=== PATIENT | female | born 1955 | race Caucasian/White ===

== ENCOUNTER 2018-08-01 13:43 | Inpatient (IN) | payer OTHER ==
[~2018-08-01] VITALS: Ht 160 cm; Wt 127.7 kg
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
--- NOTE | ~2018-08-01 | PR ---
[place], [place] PROGRESS NOTE NAME: CARMEN GAMBINO UNIT #: [id number] ROOM: 310 DOCTOR: ANEESH ABBOTT CNP BIRTHDATE: [birth year] DOS: 08/04/2018 CHIEF COMPLAINT: "I am not angry anymore." SUMMARY OF VISIT: The patient was interviewed as she sat in the dining room, participating in activities. The patient engaged readily in conversation with me. She reports that she is happy. She no longer feels angry. She denies feeling any anxiety. She reports that her appetite is good and that she is sleeping well. Staff reports that the patient has not exhibited any behaviors recently, that she appears to be tolerating medications without any side effects. MENTAL STATUS EXAMINATION: The patient is alert and oriented. She was pleasant and cooperative. No overt nayla or hypomania noted. No delusions or paranoia noted. No psychotic symptoms noted. No auditory or visual hallucinations noted. Her mood seems to be trending toward euthymia. Affect is congruent with mood. PLAN: I will continue the patient's medications as prescribed. The patient seems to be tolerating medications without side effects. We will continue to monitor the patient, continue to encourage the patient to engage in individual and mckenzie milieu activity. Continue fall and safety precautions. Plan to return the patient to the least restrictive environment when she is considered psychiatrically stable. Aneesh Abbott CNP CM:PNTRANS [phone] ANEESH ABBOTT CNP 08/05/18 0052 interface
--- NOTE | ~2018-08-01 | PR ---
[place], [place] PROGRESS NOTE NAME: CARMEN GAMBINO UNIT #: [id number] ROOM: 310 DOCTOR: JOHNNY LEONARDO MD BIRTHDATE: [birth year] DOS: 08/03/2018 INTERVAL NOTE CHIEF COMPLAINT: "Oh, Hi there, how are you, I am good." SUMMARY OF THE VISIT: The patient was interviewed as she was sitting with many other residents. She engaged readily in conversation. She brightly told me that family came to visit yesterday and states that she believes they are coming again to see her today. She reports that she is trying her best to keep her moods under control and has been relatively redirectable with minimal amount of support. Outwardly, she is tolerating the current medication regimen well without any sedation or somnolence noted. MENTAL STATUS: She is alert and oriented with time gaps. Mood does seem to be more euthymic. Affect is more appropriate. There is no nayla, hypomania or gross psychosis. Short-term memory has gaps, otherwise she is intact. PLAN: I will go ahead and check a valproic acid level in the a.m. to ensure that it is therapeutic. I would like to see a level between 60 and 80 and we will adjust her Depakote dose accordingly. We will engage her in individual and mckenzie milieu activity, returning to the least restrictive environment when psychiatrically stable. JOHNNY LEONARDO MD CM:PNTRANS [phone] JOHNNY LEONARDO MD 08/03/18 2001 interface
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
[2018-08-01] MEDS ORDERED: AMARYL2 MG PO ×2 (15:08→15:18)
[2018-08-01] MEDS ORDERED: ASPIRIN CHEWABL81 MG PO (15:12)
[2018-08-01] MEDS ORDERED: COLACE100 MG PO (15:13)
[2018-08-01] MEDS ORDERED: FEXOFENADINE HY60 MG PO (15:13)
[2018-08-01] MEDS ORDERED: 24 HOUR ALLER15.8 ML INH (15:15)
[2018-08-01] MEDS ORDERED: OXYGEN NAS (15:19)
[2018-08-01] MEDS ORDERED: OMEPRAZOLE20 M2 PO (15:20)
[2018-08-01] MEDS ORDERED: SINGULAIR10 M1 PO (15:21)
[2018-08-01] MEDS ORDERED: VISTARIL50 MG PO (15:21)
[2018-08-01] MEDS ORDERED: VITAMIN C500 M4 PO (15:22)
[2018-08-01] MEDS ORDERED: VITAMIN D35000 UNIT PO (15:22)
[2018-08-01] MEDS ORDERED: WELLBUTRIN XL300 MG PO (15:23)
[2018-08-01] MEDS ORDERED: PULMICORT RESP0.5 MG INH (15:26)
[2018-08-01] MEDS ORDERED: LEVEMIR100 UNIT/1 SQ (15:26)
[2018-08-01] MEDS ORDERED: VISTARIL25 MG PO (15:29)
[2018-08-01] MEDS ORDERED: NOVOLOG10 ML SQ (15:32)
[2018-08-01] MEDS ORDERED: NOVOLOG FL100 UNIT/2 SQ ×2 (15:34→15:36)
[2018-08-01] MEDS ORDERED: PROAIR HFA8.5 GM INH (15:37)
[2018-08-01] MEDS ORDERED: SALINE NASAL SP88 ML INH (15:38)
[2018-08-01] MEDS ORDERED: Ipratropium Brom3 ML INH (15:39)
[2018-08-01] MEDS ORDERED: TUSSIN COU15 MG/5 ML PO (15:41)
[2018-08-01] MEDS ORDERED: ZOFRAN4 MG PO (15:42)
--- NOTE | 2018-08-01 16:04 | NUR ---
CARMEN GAMBINO a 63 year old F admitted via wheel chair from the ADMITTING as a voluntary BY [facility] admission. Arrived on unit at 1604. ALLERGIES: AMOXICILLIN. Vital signs are: 98.5-78-18 144/67. 99% ROOM AIR The POA signed the following forms with stated understanding: Authorization For The Release of Medical Information, Clothing List, Consent to Voluntary Admission and Hospitalization, Consent and Release Forms/Receipt of Rights, Acknowledgement of Advance Directive Information, Behavioral Health Consent Form, and Informed Consent of Medications. Admitted under the services of Dr. JORDEN GOOD,[facility]. A search was conducted and hazardous articles were removed. Client was oriented to the unit. SELENE GARCIA
[2018-08-01 16:33] VITALS: BP 144/67
--- NOTE | 2018-08-01 16:53 | NUR ---
CALL PLACED TO [phone] FOR HOSPITALIST CELL NUMBER ONE, SPOKE TO , MADE AWARE OF CONSULT FOR MEDICAL MANAGEMENT. MADE AWARE PT IS DIABETIC, BSG 307 AT THIS TIME. STATES THEY WILL ENTER NEW ORDERS.
--- NOTE | 2018-08-01 17:18 | NUR ---
ON UNIT TO SEE PT AT THIS TIME.
--- NOTE | 2018-08-01 17:56 | NUR ---
ON UNIT TO SEE PT AT THIS TIME. LAB ON UNIT FOR BLOOD DRAW. FAMILY VISITING AND AWARE.
[2018-08-01 18:14] LABS: BASO # 0.1 10*3/uL (0.0-0.1); BASO % 0.8 % (0.0-1.0); EOS # 0.3 10*3/uL (0.0-0.4); EOS % 3.8 % (1.0-4.0); LYMPH # 1.9 10*3/uL (1.3-4.4); LYMPH % 22.5 % (27.0-41.0); MEAN CELL VOLUME 68.8 fl (81.0-99.0); MEAN CORPUSCULAR HGB 19.4 pg (27.0-31.0); MEAN CORPUSCULAR HGB CONC 28.1 g/dl (33.0-37.0); MEAN PLATELET VOLUME 10.3 fl (9.6-12.3); MONO # 0.7 10*3/uL (0.1-1.0); MONO % 8.4 % (3.0-9.0); NEUT # 5.4 10*3/uL (2.3-7.9); PLATELET COUNT AUTOMATED 313 10*3/uL (130-400); RED BLOOD COUNT 4.65 10*6/uL (4.10-5.10); RED CELL DISTRI WIDTH 20.5 % (0-14.5); WHITE BLOOD COUNT 8.5 10*3/uL (4.8-10.8)
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
[2018-08-01 18:52] LABS: ALBUMIN 3.3 gm/dl (3.1-4.5); ALKALINE PHOSPHATASE 119 U/L (45-117); BUN 16 mg/dl (7-24); CHLORIDE 102 mmol/L (98-107); CREATININE 0.97 mg/dL (0.55-1.02); POTASSIUM 4.3 mmol/L (3.5-5.1); SGOT/AST 17 IU/L (3-35); SGPT/ALT 22 U/L (12-78); SODIUM 138 mmol/L (136-145); TOTAL PROTEIN 8.7 gm/dL (6.4-8.2)
[2018-08-01 18:58] LABS: VITAMIN D, 25-HYDROXY 25.3 ng/mL (30-100)
[2018-08-01 19:23] LABS: BILIRUBIN NEGATIVE (NEGATIVE); BLOOD 2+ (NEGATIVE); CLARITY SL CLOUDY (CLEAR); COLOR YELLOW (YELLOW); GLUCOSE 1+ (NEGATIVE); KETONE TRACE (NEGATIVE); LEUKO ESTERASE 1+ (NEGATIVE); NITRITE NEGATIVE (NEGATIVE); UROBILINOGEN 0.2 E.U./dl (0.2-1.0)
[2018-08-01 19:31] LABS: BACTERIA 4+; RBC 21-30 rbc/hpf (0-2); WBC TNTC wbc/hpf (0-5)
[2018-08-01 20:04] VITALS: BP 120/70
--- NOTE | 2018-08-01 20:26 | NUR ---
MADE AWARE OF UA AND A1C. ALSO MADE AWARE HOME MEDICATIONS NEED TO BE ORDERED.
--- NOTE | 2018-08-01 21:59 | NUR ---
PT ALERT AND VERBAL. ABLE TO ANWSER ONLY SOME SIMPLE QUESTIONS APPROPRIATELY, MEDICATION COMPLIANT WITHOUT DIFFICULTY. RESPS EASY AND EVEN ON ROOM AIR.
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
--- NOTE | 2018-08-02 00:05 | NUR ---
RUDDY Cespedes RECEIVED FROM .
--- NOTE | 2018-08-02 00:55 | NUR ---
24 HR chart check completed.
--- NOTE | 2018-08-02 04:08 | NUR ---
REDNESS NOTED TO LOWER ABD AREA. NO OPEN AREAS, DRAINAGE, OR FOUL ODOR NOTED. DREA WC NURSE ON UNIT AND ASSESSED, STATES WILL INFORM RESIDENT AND PROVIDE WC RECOMMENDATIONS.
--- NOTE | 2018-08-02 04:28 | NUR ---
CARMEN GAMBINO [id number] Please refer to the physician's history and physical for past medical history, comorbid conditions, and allergies. Diagnosis: MAJOR DEPRESSION RECURRENT W/PSYCHOTIC FEATURES Chris Score: 15,AT RISK WOUND DESCRIPTIONS: Wound Number: 1 Location of the wound: left posterior upper thigh Type of wound: stage 2 Thickness: Partial Size: 0.9cm x 1.4cm x 0.1cm Tunneling: none Undermining: none Sinus Tract: none Presence of Exudate: Serosanguineous Amount: Light Color: Red Odor: None Periwound Skin Appearance: Normal Wound edges: approximated Pain (associated with wound): none at time of assessment How does patient state this happened? pt unsure how this happened Wound Number: 3 Location of the wound: medial aspect of right posterior upper thigh proximal Type of wound: stage 2 Thickness: Partial Size: 0.3cm x 0.4cm x 0.1cm Tunneling: none Undermining: none Sinus Tract: none Presence of Exudate: Serosanguineous Amount: Light Color: Red Odor: None Periwound Skin Appearance: Normal Wound edges: approximated Pain (associated with wound): none at time of assessment How does patient state this happened? pt unsure how this happened Wound Number: 3 Location of the wound: medial aspect of right posterior upper thigh distal Type of wound: stage 2 Thickness: Partial Size: 3.5cm x 7.0cm x 0.1cm Tunneling: none Undermining: none Sinus Tract: none Presence of Exudate: Serosanguineous Amount: Light Color: Red Odor: None Periwound Skin Appearance: Normal Wound edges: approximated Pain (associated with wound): none at time of assessment How does patient state this happened? pt unsure how this happened Wound Number: 4 Location of the wound: lateral aspect of right posterior upper thigh Type of wound: stage 2 Thickness: Partial Size: 0.4cm x 0.6cm x 0.1cm Tunneling: none Undermining: none Sinus Tract: none Presence of Exudate: Serosanguineous Amount: Light Color: Red Odor: None Periwound Skin Appearance: Normal Wound edges: approximated Pain (associated with wound): none at time of assessment How does patient state this happened? pt unsure how this happened Wound Number: 5 Location of the wound: left posterior leg behind knee Type of wound: fungal Thickness: Partial Size: 6.5cm x 18.5cm x 0.1cm Tunneling: none Undermining: none Sinus Tract: none Presence of Exudate: Serous Amount: Light Color: Red Odor: Foul Periwound Skin Appearance: Edema Wound edges: approximated Pain (associated with wound): none at time of assessment How does patient state this happened? pt unsure how this happened Wound Number: 6 Location of the wound: left heel Type of wound: unstageable Thickness: Full Size: 0.6cm x 0.4cm x <0.1cm Tunneling: none Undermining: none Sinus Tract: none Presence of Exudate: none Amount: None Color: Brown, yellow Odor: None Periwound Skin Appearance: Normal Wound edges: closed Pain (associated with wound): none at time of assessment How does patient state this happened? pt unsure how this happened Wound Number: 7 Location of the wound: right breast Type of wound: fungal Thickness: Partial Size: 1.0cm x 2.0cm x 0.1cm Tunneling: none Undermining: none Sinus Tract: none Presence of Exudate: Serous Amount: Light Color: Red Odor: Foul Periwound Skin Appearance: Normal Wound edges: approximated Pain (associated with wound): none at time of assessment How does patient state this happened? pt unsure how this happened Wound number: 8 Bilateral groins have red satelitte areas noted. Bilateral groins have serous drainage noted that is foul smelling. Surface the patient is resting on: Proform SKIN PREVENTION RECOMMENDATION: 1. Pressure redistribution support surface as appropriate 2. Elevate heels 3. Remove boots/TEDS every shift and reapply 4. Head of bed 30 degrees as tolerated 5. Assess nutrition and hydration 6. Manage moisture 7. Avoid the use of containment devices while in bed 8. Use absorptive products on surfaces limit layers of linens on bed 9. Turn and reposition every 1-2 hours in bed and every 1 hour in chair as tolerated 10. Weight shifts every 15 minutes while up in chair 11. Offloading with pillows or device to keep heels elevated off bed 12. Monitor skin at least every shift 13. Inspect under medical devices twice a day WOUND TREATMENT RECOMMENDATIONS: Wheelchair cushion when oob. Heel raiser pro boots while in bed to bilateral feet. Stage 2 guidelines: Cleanse left posterior upper thigh, medial aspect of right posterior upper thigh proximal, medial aspect of right posterior upper thigh distal and lateral aspect of right posterior upper with nss and apply sureprep around the wound therahoney to wound bed and cover with optifoam gentle daily and prn for soiling. Cleanse right breast, bilateral groins and left posterior leg behind knee with soap and water and apply nystatin poweder every 8 hours. Full thickness guidelines: cleanse left heel with nss and apply sureprep around the wound therahoney to wound bed and cover with optifoam gentle. Venous and arterial stuides due to wound to left heel. Consult podiatry for possible debridement of left heel.
--- NOTE | 2018-08-02 05:45 | NUR ---
PT HAS BEEN AWAKE ALL EVENING WITHOUT SLEEP. RESTED IN BED WITH AWAKENINGS X3 TO USE THE RESTROOM.
[2018-08-02 07:43] VITALS: BP 121/78
[2018-08-02 08:11] LABS: CHOLESTEROL 157 mg/dL (<200); HDL CHOLESTEROL 54 mg/dl (40-60); LDL CHOLESTEROL 84 mg/dL (9-159); TRIGLYCERIDES 94 mg/dl (<150); VLDL CHOLESTEROL 19 mg/dL (6-40)
--- NOTE | 2018-08-02 08:15 | NUR ---
Treatment Plan meeting with Dr. [place] RN, AT, SW and Mother Baby Rn. Plan for discharge Next week. Pt. is from [place] will reach out to facility today to discuss discharge Planning.
--- NOTE | 2018-08-02 08:49 | NUR ---
Nursing screen received. Occupational Therapy referral received. Thank you. Samara Terry OTR/L
--- NOTE | 2018-08-02 10:14 | NUR ---
Spoke with Alejandrina in Admissions at [place]. Patient is [facility] and will return at discharge. Does not require precert prior to return.
--- NOTE | 2018-08-02 10:32 | NUR ---
Dr. Li notified of wound care recommendations.
--- NOTE | 2018-08-02 11:21 | NUR ---
S3B MULTI SENSOR OPERATOR UPDATED THIS NURSE THAT AFTER SPEAKING WITH FACILITY THEY ADVISED THAT PT IS A PUREED DIET WITH NECTAR THICK LIQUIDS. MESSAGE SENT TO DIETARY AND ALSO PHONE COLIN PLACED TO UPDATE ORDERS.
--- NOTE | 2018-08-02 11:30 | NUR ---
ON UNIT TO ASSESS PT, UPDATE PROVIDED.
--- NOTE | 2018-08-02 12:16 | NUR ---
SPEECH PATHOLOGY Clinical swallowing evaluation completed as per orders. Patient has a hx of dysphagia and is ordered a pureed diet and nectar thick liquids as per the senior care that she was admitted from. Medical history is significant for major depression with psychotic features, COPD, GERD, HTN, DM and uterine cancer. Patient was seen this pm during lunch time meal. Patient was sitting upright in a chair and was feeding herself, after being given only 1-2 items at a time to ensure slow consumption. Oral peripheral exam was completed and was WNL. Patient was observed with a variety of pureed items and nectar thick liquids. She displayed safe tolerance of all items consumed and 100% intake. Occasional cues to slow down and take small bites were required. Recommend patient remain on pureed diet and nectar thick liquids at this time as her behaviors can increase aspiration risk. Patient has a history of impulsivity at mealtime as reports indicate that she needs reminders to eat slowly and take small bites. Short term follow up therapy is recommended to ensure safe tolerance of diet through adherence to safe swallow precautions. Results and emil. were shared with patient and her nurse and they verbalized understanding. [facility] for further information. Thank you for this referral. NATALIYA PETERSNO [facility] NURSE
--- NOTE | 2018-08-02 14:41 | NUR ---
P: PT ALERT TO PERSON, AND TIME, KNOWS SHE IS IN THE HOSPITAL BUT UNSURE OF WHERE. PT CALM, MOOD IS DEPRESSED. PT TEARFUL AT TIMES STATING "I MISS MY MOM, I WANT TO GO BACK". I: PROVIDED EMOTIONAL SUPPORT AND 1:1 FOR PT TO VOICE FEELINGS, ENCOURAGE GROUP PARTICIPATION AND SOCIALIZATION, REORIENT PT PLACE AND TIME. R: PT PARTICIPATED IN GROUP, SOCIALIZED [facility]. LESS TEARFUL THIS AFTERNOON P: MONITOR PT BEHAVIORS ON Q15 MIN SAFETY CHECKS, ENCOURAGE MED COMPLIANCE, PROVIDE EMOTIONAL SUPPORT AND 1:1 FOR PT TO VOICE FEELINGS, REORIENT NEEDED PT MED COMPLIANT WITHOUT DIFFICULTY. PT UP TO WHEELCHAIR, REQUIRES 1 ASSIST FOR TRANSFERS AND AMBUALTION. PT CONTINENT OF BOWEL AND BLADDER.
--- NOTE | 2018-08-02 15:34 | NUR ---
Clinical Updates faxed to [facility] Attn: Alejandrina.
--- NOTE | 2018-08-02 15:35 | NUR ---
Family meeting held with pt's sisters Tri Dowling and Evelia. Pt's sisters shared about pt's history and current living situation. Pt resides in in the same room as her mother who has advancing dementia. Discussed the impact of dementia on a family and the added difficulty for pt as she has mild DD. Discussed this further, This designer writer suggested that pt have more time away from her mother in activities to allow for other social interaction and as a preparation for the decline of pt's mother. Discussed pt's dependence on her mother. Pt's sisters are very supportive and are willing to explore ways at the that will allow pt time away from her mother as a means to decrease pt's behaviors and to prepare her for a future without her mother. All questions from pt's family were addressed. Discharge plan is to return to [facility].
--- NOTE | 2018-08-02 19:47 | NUR ---
MADE AWARE OF CRITICAL BSG 426 AND ROUTINE ORDERS. STATES GIVE ALL SCHEDULED MEDICATIONS AND SLIDING SCALE 22UNITS. NO OTHER ORDERS RECEIVED.
[2018-08-02 20:00] VITALS: BP 124/53
--- NOTE | 2018-08-02 22:00 | NUR ---
PT REFUSED SNACK BUT DRANK BOOST SUPPLEMENT WITH MUCH ENCOURAGEMENT.
--- NOTE | 2018-08-02 23:38 | NUR ---
MOOD IS STABLE AND EUTHYMIC WITH APPROPRIATE BUT SOMETIMES FLAT AFFECT. ABLE TO ANWSER SOME SIMPLE QUESTIONS APPROPRIATELY. SLOW TO PROCESS AND RESPOND. PT GIVEN ADEQUATE AMOUNT OF TIME TO DO SO DURING INTERACTIONS. MEDICATION COMPLIANT WITHOUT DIFFICULTY. WOUND CARE TREATMENTS COMPLETED THIS SHIFT PER ORDERS. PT TOLERATED ALL TX'S WELL AND DENIES ANY PAIN TO ALL AREAS. FOUL SMELLING ODOR NOTED TO GROIN. PT TOOK A SHOWER THIS SHIFT. GOOD HYGIENE, DRESS, AND GROOMING THIS SHIFT WITH ASSIST FROM STAFF. PT PARTICIPATES MODERATELY IN ADLS. ATE 100% OF SNACK. POSITIVE PEER INTERCTIONS NOTED. MEDICATION COMPLIANT WITHOUT DIFFICULTY. 2L O2 VIA NC PER ORDERS IN PLACE. PT RESTING IN BED SLEEPING AT THIS TIME. RESPS EASY AND EVEN ON 02. Q15 MIN CHECKS PER OBSERVATION ORDERS. FALL PRECAUTIONS MAINTAINED. BED ALARM ON. BED LOW AND LOCKED.
--- NOTE | 2018-08-03 03:28 | NUR ---
24 HR chart check completed.
--- NOTE | 2018-08-03 05:09 | NUR ---
Upon discharge recommend patient to follow up for wound care in outpatient setting continue current wound care orders at discharging facility.
--- NOTE | 2018-08-03 05:58 | NUR ---
PT SLEPT 4.5 TO 4.75 HRS INTERMITTENTLY T/O THE EVENING. UP IN DAY ROOM WATCHING TV AT THIS TIME.
[2018-08-03 08:08] VITALS: BP 146/55
--- NOTE | 2018-08-03 08:25 | NUR ---
SPOKE WITH DR. MILLER AT [phone] RE: CONSULT FOR DR. HOLCOMB FOR POSSIBLE LEFT HEEL WOUND DEBRIDEMENT.
--- NOTE | 2018-08-03 10:18 | NUR ---
ON UNIT TO ASSESS PT.
--- NOTE | 2018-08-03 10:33 | NUR ---
Sat with pt in the activity room this AM. Pt is coloring and interacts minimally - only when spoken to and then with short answers. Observed pt with two other female pts. Pt also interacty minimally with her peers. When asked how pt is feeling, pt stated that she was "good."
--- NOTE | 2018-08-03 10:46 | NUR ---
SPEECH THERAPY Patient was seen this morning for swallowing treatment. Patient educated on small bites, small sips, and slow rate of intake prior to presentation of pureed food items and nectar-like liquids. Patient consumed small bites of pureed food consistencies. She required minimum verbal cues throughout to maintain slow rate of intake throughout treatment. During sips of nectar-like liquid via straw, reflexive coughing was observed on one trial. Patient cued to decrese sip size, and take small, single sips and to avoid consecutive sips. Patient cued to swallow bolus in mouth prior to taking additional bites or sips. Recommended to continue treatment plan for carryover of safe swallowing strategies with increased independence throughout a meal. Shellie Maria MA CF-JUVENILE CORRECTIONAL OFFICER
--- NOTE | 2018-08-03 11:00 | NUR ---
Treatment Plan meeting with Dr. Redding, RN, SW and Demand Manager. Plan for discharge next week. Pt. is LTC at [facility] and will return at discharge.
--- NOTE | 2018-08-03 13:37 | NUR ---
[facility]
--- NOTE | 2018-08-03 15:00 | NUR ---
PHYSICAL THERAPY Patient evaluated on 3, full evaluation to follow. Continue with PT as per plan of care with fall, unit three, alarm and acute debility precautions. Return to prior facility with PT prn to return to PLOF. PAtient is moderate complexity via chart review, tests and evaluation: [id number]. Thank you for this referral. Tiffany Jade,PT
--- NOTE | 2018-08-03 15:36 | NUR ---
NO ADVERSE MOODS OR BEHAVIORS NOTED THIS SHIFT. PT ALERT TO PERSON, PLACE-KNOWS SHE IS IN THE HOSPITAL AND TIME. PT MED COMPLIANT WITHOUT DIFFICULTY, UNABLE TO PROVIDE MED EDUCATION D/T COGNITION. PT CALM, MOOD IS DEPRESSED. PT DOES NOT INITIATE CONVERSATION WITH STAFF OF PEERS, WILL SPEAK WHEN SPOKEN TO IN SHORT ANSWERS. NO HALLUCINATIONS OR DELUSIONS NOTED. PT DENIES ANY SUICIDAL THOUGHTS. PT UP TO WHEELCHAIR, REQUIRES 1 STAFF ASSIST FOR TRANSFERS AND HYGIENE NEEDS. PT CONTINENT OF BOWEL AND BLADDER, EPISODES OF INCONTINENCE NOTED, CARE PROVIDED NEEDED. PLAN IS TO MONITOR PT BEHAVIORS ON Q15 MIN SAEFTY CHECKS, ENCOURAGE MED COMPLIANCE, PROVIDE EMOTIONAL SUPPORT AND 1:1 FOR PT TO VOICE FEELINGS, ENCOURAGE GROUP PARTICIPATION AND SOCIALIZATION.
--- NOTE | 2018-08-03 16:17 | NUR ---
AND DR. GARCIA ON UNIT TO ASSESS PT, UPDATE PROVIDED.
--- NOTE | 2018-08-03 16:54 | NUR ---
PHYSICAL THERAPY Nursing screen received. PT orders also received. Thank you. Tiffany Jade,PT
[2018-08-03 20:00] VITALS: BP 151/71
--- NOTE | 2018-08-04 00:36 | NUR ---
Patient alert and oriented x3 but slow to process and respond. Patient has flat affect at times. No SI/HI noted at this time. No hallucinations/delusions noted at this time. Patient is compliant with medications without any difficulty. Provided 1:1 to patient for emotional support. Redirected when appropriate. Plan to continue to encourage medication compliance and to provide 1:1 for emotional support. Redirect when needed and appropriate. Q 15 minute safety checks continued and maintained. See [facility] flowsheet for further documentation.
--- NOTE | 2018-08-04 00:54 | NUR ---
24 HR chart check completed.
--- NOTE | 2018-08-04 04:55 | NUR ---
Patient slept approx. 3 1/2 hours throughout shift. Q 15 minute safety checks continued and maintained.
[2018-08-04 07:46] VITALS: BP 140/70
--- NOTE | 2018-08-04 11:49 | NUR ---
AM GROUP/EXERCISES/GAMES PT ATTENDED AND PARTICIPATED IN ALL GROUP ACTIVITY'S. PT DID NOT BECOME ANXIOUS OR AGITATED AT THIS TIME. PT WILL CONTINUE TO ATTEND AND PARTICIPATE IN FUTURE GROUP SESSIONS.
--- NOTE | 2018-08-04 16:41 | NUR ---
PM GROUP/NEREIDA BUSH/LEISURE SKILLS PT ATTENDED AND PARTICIPATED DURING GROUP. PT WORKING ON WORDSEARCH TO ONLY FIND 2 WORDS IN 2 HOURS. NURSE INFORMED THIS STAFF THAT PT CAN'T READ, BUT PT INSISTED DOING WORDSEARCH WITH NO HELP. PT PRAISED FOR DETERMINATION. PT WILL CONTINUE TO ATTEND AND PARTICIPATE IN FUTURE GROUP SESSIONS.
[2018-08-04 20:00] VITALS: BP 134/67
--- NOTE | 2018-08-04 21:33 | NUR ---
Patient alert and oriented x3 but slow to process and respond. Patient has flat affect at times. No SI/HI noted at this time. No hallucinations/delusions noted at this time. Patient is compliant with medications without any difficulty. Provided 1:1 to patient for emotional support. Redirected when appropriate. Plan to continue to encourage medication compliance and to provide 1:1 for emotional support. Redirect when needed and appropriate. Q 15 minute safety checks continued and maintained. See [facility] flowsheet for further documentation.
--- NOTE | 2018-08-05 00:09 | NUR ---
24 HR chart check completed.
--- NOTE | 2018-08-05 05:31 | NUR ---
Patient slept approx. 1 1/2 hours throughout shift. Q 15 minute safety checks continued and maintained.
[2018-08-05 07:30] VITALS: BP 132/77
--- NOTE | 2018-08-05 09:52 | NUR ---
DR. FLORES ON FLOOR TO ASSESS PATIENT.
--- NOTE | 2018-08-05 11:09 | NUR ---
P: Patient tearful after breakfast. Patient stated "I am sad. I do not know why I am sad today. I just want to get out of here". Patient holding her baby doll. Patient is alert to person only with confusion noted. Depressed mood. Denies suicidal ideation or wanting to hurt herself. I: 1:1 interation with emtoinal support provided. Allowed patient to express feelings and why she is feeling sad. Assessed for suicidal ideation or plan. Encouraged patient to attend in group activites for socialization and emotional support. Provide medications on time and with education on each med. Encourage interaction with staff and peers. Offer coping and relaxation techniques when patient starts to feel sad. Offer a low stimuli environment. Reorient patient when confusion is noted. R: Patient states that she does not know why she is sad, she just feels sad, and she wants to go home. Denies SI or plan. Participating in group activities and interacting with staff/peers. Patient is medication compliant with no difficulties. Patient uses her baby doll as a coping technique. Refused to go into a low stimuli environment, patient stated that she wanted to stay in the room with everyone. As the day goes on and patient is interacting more her mood has gone up. Patient is laughing more and enjoying group. Reorientation when confused is ineffective, remains confused. P: Continue to monitor patient for depression and for any SI or plan. 1:1 interaction with emotional support when necessary. Allow to express feelings and use her baby doll for coping. Encourage patient to continue to participate in group activities. Continue to educate on other coping and relaxation techniques. Provide medications on time that are prescribed by the physician with education. Reorient patient when confusion is noted. Q15 minute checks maintained for safety. Standby assist with ADL's and care due to unsteady gait, using wheelchair.
--- NOTE | 2018-08-05 12:30 | NUR ---
Shift chart check completed.
[2018-08-05 20:00] VITALS: BP 141/86
--- NOTE | 2018-08-06 00:35 | NUR ---
24 HR chart check completed.
--- NOTE | 2018-08-06 00:48 | NUR ---
P-DEPRESSION, ANXIETY I-PROVIDE 1:1 FOR VENTILATION OF FEELINGS & EMOTIONAL SUPPORT. GIVE SIMPLE DIRECTIVES DUE TO COGNITION. ASSESS ORIENTATION. ADMINISTER MEDICATIONS & MONITOR SLEEP. R-MOOD IS MILDLY DEPRESSED & STATES THAT SHE IS ANXIOUS. ALERT TO PERSON & STATES THAT SHE IS IN THE HOSPITAL & THE MONTH IS AUGUST. ABLE TO FOLLOW SIMPLE DIRECTIONS & RESPONDS WITH SHORT ANSWERS. NO DELUSIONS STATED, DENIES SENSORY DISTURBANCE & NONE IS EVIDENT. NO SUICIDAL IDEATIONS VOICED. TOOK HS MEDICATIONS CRUSHED & MIXED IN APPLESAUCE. HS BEDSIDE GLUCOSE WAS 470. RECEIVED 22 UNITS COVERAGE. P-CONTINUE TO MONITOR & PROVIDE PHYSICAL ASSISTANCE & EMOTIONAL SUPPORT NEEDED.
--- NOTE | 2018-08-06 05:40 | NUR ---
PT HAS SLEPT PAST 2200 & HAS BEEN NOTED TO MOVE AROUND IN BED ALOT. SLEPT APPROX 5 1/2 HOURS OF INTERUPTED SLEEP. UTILIZES O2 INTERMITTENTLY THROUGHOUT THE NIGHT.
--- NOTE | 2018-08-06 06:52 | NUR ---
AM BEDSIDE GLUCOSE 71
--- NOTE | 2018-08-06 07:20 | NUR ---
PHYSICAL THERAPY Patient seen this am for therapy visit and was sitting at activity room table in her w/c upon therapist arrival. Patient presents with mild speech dificulty and inceased B LE edema. Patient educated, then performed seated B LE therex, all planes, x 15 reps each with R LE weaker than L during LAQ. Patient also completed several sit to stand transfers at [facility], tolerating < 1 minute each trial due to increased fatigue and decreased LE weakness. Patient returned to / at table in activity room and remained under [facility] staff Supervision awaiting breakfast. Will continue per POC as tolerated, total treatment time 16 minutes. Bridger Sheets, FLOTATION OPERATOR
[2018-08-06 08:06] VITALS: BP 153/65
--- NOTE | 2018-08-06 08:15 | NUR ---
Treatment Plan meeting with Dr. Redding, RN, AT, SW and Enforcement Safety Officer. Plan for discharge Monday. Pt. will return to [facility].
--- NOTE | 2018-08-06 08:45 | NUR ---
DR. MORTON ON FLOOR FROM PODIATRY TO ASSESS PATIENT.
--- NOTE | 2018-08-06 09:11 | NUR ---
CALLED PHARMACY FOR PATIENTS AMARYL. WAITING FOR IT TO BE SENT OVER.
--- NOTE | 2018-08-06 10:11 | NUR ---
DR. FLORES ON FLOOR TO ASSESS PATIENT, UPDATE PROVIDED.
--- NOTE | 2018-08-06 11:24 | NUR ---
P: Tearful at times and patient stating that she is sad. Patient tearful and stating "I just want to get out of here. When can I just go home. I do not want to wait until tomorrow. I miss my mom. I am sad because I just can not stay here anymore". I: 1:1 interaction with emotional support provided. Allowed patient to express why she is feeling sad. Coping skills, relaxation techniques, and diversional activities provided and encouraged to use. Encourage to participate in group therapies for socialization and emotional support. Provide medications with education. Offered to have patient call her mom. R: Patient stating that she just wants to go home. Patient uses the baby doll that she carries around as a coping mechanism. Patient is participating in group therapies and interacting with peers and staff. Patient seems to be more happy as the day goes on and she is doing activities. Patient enjoys talking with staff and peers. Medication compliant with no difficulties. Patient denies wanting to call her mom because it was to early at the time. P: Continue to monitor patient for depression. Encourage patient to use her baby doll as a coping mechanism. Continue to encourage patient to keep participating in group and interacting. Keep patient doing activities because she enjoys them. Provide medcications prescribed by the physician on time with education. Q15 minute checks maintained for safety.
--- NOTE | 2018-08-06 11:59 | NUR ---
AM GROUP/REMINISCING AND SOCIALIZING PT ATTENDED AND PARTICIPATED IN GROUP DISCUSSION UNTIL REMOVED FOR SHOWER. PT EXHIBITED NO ANXIETY DURING GROUP.
--- NOTE | 2018-08-06 12:20 | NUR ---
Spoke with Alejandrina Injection Mold Technician at [place]. Advised of discharge plans for [facility]. Clinical Updates faxed to [place] Attn: Alejandrina.
--- NOTE | 2018-08-06 12:30 | NUR ---
Spoke with patient Sister. Advised of plans to discharge tommorow.
--- NOTE | 2018-08-06 13:28 | NUR ---
Shift chart check completed.
--- NOTE | 2018-08-06 13:47 | NUR ---
SPEECH PATHOLOGY Patient was seen for treatment this pm during lunchtime meal. Safe swallow precautions were being implemented. Patient was sitting upright at table and given one item at a time to decrease impulsivity and rapid eating pattern. Adequate bite size and rate of feeding was noted. Patient was observed from outside the activity room and displayed no difficulty. When clinician entered the room and spoke to patient, asking about her swallowing, she began coughing. Encouragement was provided that she was ok and to continue to take small amounts as she had been. Patient was holding her throat and saying aloud "I'm coughing." Clinician spoke with patient's nurse who reported that this behavior has been noted and appears to be due to anxiety as it seems to occur around this time of day and when many other people are around. Clinician is in agreement, as prior to speaking with patient, she was not showing any difficulty swallowing her meal. Recommend patient remain on present diet for safety, with continued use of safety precautions. Will continue plan short term to ensure safety and adherence to safe swallow precautions. NATALIYA PETERSON MS CCC-FIELD SALES SPECIALIST
--- NOTE | 2018-08-06 13:58 | NUR ---
Occupational Therapy evaluation completed on 3 with full eval to follow/ Precautions include 3n unit prec, fall risk, w/c dep w/ ww use for bathroom only,moderate complexity level 94177 via chart review, testing and evalaution. Recommend no further OT at this time as patient appears at baseline. and return to LTC and no further OT indicated at this time, Encourage patient to perform w/c mobility on the 3N unit. Thank you for this referral Samara Terry OTR/l
--- NOTE | 2018-08-06 15:21 | NUR ---
Pt was pleasant this AM when speaking to this senior grant writer. Pt stated that she thinks she is going home today. Pt stated, "I'm a good girl."
--- NOTE | 2018-08-06 15:37 | NUR ---
PM GROUP/LEISURE INTERESTS PT ATTENDED GROUP AND PARTICIPATED BY WORKING ON A [employer]. PT WAS QUIET AND ON TASK. PT EXHIBITED NO ANXIETY DURING GROUP.
[2018-08-06 20:00] VITALS: BP 118/61; BP 153/65
--- NOTE | 2018-08-06 20:58 | NUR ---
EVENING/CRAFTS/MUSIC PT ATTENDED AND PARTICIPATED DURING GROUP. PT KEPT TO SELF AT THIS TIME WORKING ON CRAFT. PT DID NOT EXPRESS ANY ANXIETY AT THIS TIME. PT WILL CONTINUE TO BE ENCOURAGED TO ATTEND AND PARTICPATE IN FUTURE GROUP SESSIONS.
--- NOTE | 2018-08-06 23:08 | NUR ---
24 HR chart check completed.
--- NOTE | 2018-08-06 23:33 | NUR ---
P-DEPRESSION, ANXIETY I-PROVIDE 1:1 FOR VENTILATION OF FEELINGS & EMOTIONAL SUPPORT. GIVE SIMPLE DIRECTIVES DUE TO COGNITION. ASSESS ORIENTATION. ADMINISTER MEDICATIONS & MONITOR SLEEP. R-MOOD IS MILDLY DEPRESSED & STATES THAT SHE IS ANXIOUS. ALERT TO PERSON & STATES THAT SHE IS IN THE HOSPITAL & THE MONTH IS AUGUST. ABLE TO FOLLOW SIMPLE DIRECTIONS & RESPONDS WITH SHORT ANSWERS. NO DELUSIONS STATED, DENIES SENSORY DISTURBANCE & NONE IS EVIDENT. NO SUICIDAL IDEATIONS VOICED. TOOK HS MEDICATIONS CRUSHED & MIXED IN APPLESAUCE. HS BEDSIDE GLUCOSE WAS 222. RECEIVED 5 UNITS COVERAGE. P-CONTINUE TO MONITOR & PROVIDE PHYSICAL ASSISTANCE & EMOTIONAL SUPPORT NEEDED.
--- NOTE | 2018-08-07 05:21 | NUR ---
PT HAS SLEPT PAST 0 WITH 3 BRIEF AWAKENINGS TO GO TO THE BATHROOM WITH STAFF ASSISTANCE
--- NOTE | 2018-08-07 06:15 | NUR ---
PT BEDSIDE GLUCOSE 34. PT NOTED TO BE SWEATING. STAT REFLUX ORDERED. PT GIVEN 3 ORANGE JUICES & 6 PACKS OF SUGAR & A SANDWICH WITH LUNCHMEAT.
--- NOTE | 2018-08-07 06:53 | NUR ---
BEDSIDE GLUCOSE RETAKEN AT THIS TIME WAS 86
--- NOTE | 2018-08-07 07:01 | NUR ---
STAT GLUCOSE NOT RECEIVED YET
--- NOTE | 2018-08-07 07:03 | NUR ---
CRITICAL RESULT OF STAT GLUCOSE RECEIVED FROM BRONWYN FROM LAB WAS 38. INFORMED HIM THAT REPEAT BEDSIDE GLUCOSE WAS COMPLETED WITH A RESULT OF 86
--- NOTE | 2018-08-07 07:07 | NUR ---
DR GARCIA NOTIFIED OF BEDSIDE GLUCOSE OF 34 & CRITICAL LEVEL OF 38. INFORMED OF FOOD GIVEN & REPEAT BEDSIDE GLUCOSE OF 86. HE STATED HE WILL LOOK AT HER INSULINS & ADJUST ACCORDINGLY.
[2018-08-07 07:43] VITALS: BP 128/62
--- NOTE | 2018-08-07 08:00 | NUR ---
Treatment Plan meeting with Dr. Redding RN, AT, SW and Rn Vascular. Plan for discharge today. Pt. to return to [facility]. Call made to facility and notified [employer] Mat Assembler Tonie. Transportation arranged with Facility to transport via wheelchair Van.
--- NOTE | 2018-08-07 08:25 | NUR ---
PATIENTS BEDSIDE BLOOD GLUCOSE AT THIS TIME WAS 159. RECHECKED AT THIS TIME DUE TO PATIENT BEING LOW THIS MORNING.
[2018-08-07] MEDS ORDERED: BUDEPRION XL150 MG PO (09:08)
[2018-08-07] MEDS ORDERED: DIVALPROEX SOD125 M1 PO (09:08)
[2018-08-07] MEDS ORDERED: NYSTOP60 GM T (10:23)
[2018-08-07] MEDS ORDERED: LANTUS SOL100 UNIT/1 SC (10:23)
--- NOTE | 2018-08-07 10:28 | NUR ---
DR. FLORES ON FLOOR TO ASSESS PATIENT. DR. GARCIA NOTIFIED OF PATIENTS BLOOD SUGAR WENT UP THIS MORNING TO 159 AFTER BEING LOW WHEN WAKING UP. INFORMED OF PATIENT BEING DISCHARGED TODAY.
--- NOTE | 2018-08-07 11:16 | NUR ---
PATIENT IS MORE HAPPY. NOT TEARFUL OR DEPRESSED. PATIENT STATING "I AM SO HAPPY TO GO HOME. I CANT WAIT TO GO SEE MY MOM. I KNOW, NO HIT, NO HIT MOM. I LOVE MOM". PATIENT PLEASANT, INTERACTIVE, PARTICIPATING. MEDICATION COMPLIANT WITH NO DIFFICULITIES. PATIENT IS ALERT TO PERSON AND PLACE, CONFUSION NOTED. NO ADVERSE MOODS NOTED THIS SHIFT. Q15 MINUTE CHECKS MAINTAINED FOR SAFETY.
--- NOTE | 2018-08-07 11:40 | NUR ---
AM GROUP/EXERCISE PT ATTENDED AND PARTICIPATED IN EXERCISES TO THE BEST OF HER ABILITY. PT WAS FOCUSED AND ENTHUSIASTIC. PT WILL BE DISCHARGED FROM THE UNIT THIS AFTERNOON.
--- NOTE | 2018-08-07 12:18 | NUR ---
[facility]
--- NOTE | 2018-08-07 12:35 | NUR ---
Shift chart check completed.
--- NOTE | 2018-08-07 13:05 | NUR ---
DISCHARGE PHOTOS OF WOUNDS TAKEN AT THIS TIME. PHOTOS TAKEN OF 1) L POSTERIOR UPPER THIGH, 2) R MEDIAL POSTERIOR UPPER THIGH, 3) R DISTAL POSTERIOR UPPER THIGH, 4) R LATERAL POSTERIOR UPPER THIGH, 5) L POSTERIOR KNEE, 6) L HEEL, 7) R BREAST, 8) BILATTERAL GROIN SATELITTE AREAS.
--- NOTE | 2018-08-07 14:08 | NUR ---
Called [facility] and spoke with Diane to give Nurse to Nurse report at this time.
--- NOTE | 2018-08-07 14:10 | NUR ---
Met briefly with pt this AM. Pt is excited to be discharging today. Pt stated, "I told myself one more day, just one more day till I could go home." Pt did not display any inappropriate behaviors.
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
--- NOTE | 2018-08-07 14:53 | NUR ---
Patient discharged off floor at this time via wheelchair. Accompanied by Staff member from [place], a Nurse, and Security. Paperwork and belongings given to Staff member. Patient alert and excited to go home.
--- NOTE | 2018-08-08 07:29 | NUR ---
PHYSICAL THERAPY CO-SIGN I approve of the Phyical Therapy notes written above. RICKY STEWART PT
== END 2018-08-07 14:53 | disposition other institution (70) | DRG 883 ==
LOC: 3N 13:43 → EDBD 16:08 → 3N 08-07 14:53
PROVIDERS: ADMIT Psychiatry & Neurology Psychiatry
DX: F63.81 Intermittent explosive disorder (principal); L97.429 Non-pressure chronic ulcer of left heel and midfoot with unspecified severity; Z68.42 Body mass index [BMI] 45.0-49.9, adult; F33.3 Major depressive disorder, recurrent, severe with psychotic symptoms; R26.9 Unspecified abnormalities of gait and mobility; E78.5 Hyperlipidemia, unspecified; G47.33 Obstructive sleep apnea (adult) (pediatric); I11.0 Hypertensive heart disease with heart failure; I50.9 Heart failure, unspecified; J30.9 Allergic rhinitis, unspecified; F79 Unspecified intellectual disabilities; E11.621 Type 2 diabetes mellitus with foot ulcer; C55 Malignant neoplasm of uterus, part unspecified; J44.9 Chronic obstructive pulmonary disease, unspecified; K21.9 Gastro-esophageal reflux disease without esophagitis; M19.90 Unspecified osteoarthritis, unspecified site; R53.1 Weakness; R13.10 Dysphagia, unspecified; E66.01 Morbid (severe) obesity due to excess calories; D50.9 Iron deficiency anemia, unspecified; Z88.1 Allergy status to other antibiotic agents; Z80.0 Family history of malignant neoplasm of digestive organs; Z82.0 Family history of epilepsy and other diseases of the nervous system; Z79.82 Long term (current) use of aspirin; Z79.899 Other long term (current) drug therapy; Z79.84 Long term (current) use of oral hypoglycemic drugs

== ENCOUNTER 2018-12-07 15:08 | Inpatient (IN) | payer OTHER ==
[~2018-12-07 15:08] MED LIST: 24 HOUR ALLER15.8 ML INH; AMARYL2 MG PO; ASPIRIN CHEWABL81 MG PO; BUDEPRION XL150 MG PO; COLACE100 MG PO; DIVALPROEX SOD125 M1 PO; FEXOFENADINE HY60 MG PO; Ipratropium Brom3 ML INH; LANTUS SOL100 UNIT/1 SC; LEVEMIR100 UNIT/1 SQ; NOVOLOG FL100 UNIT/2 SQ; NOVOLOG10 ML SQ; NYSTOP60 GM T; OMEPRAZOLE20 M2 PO; OXYGEN NAS; PROAIR HFA8.5 GM INH; PULMICORT RESP0.5 MG INH; SALINE NASAL SP88 ML INH; SINGULAIR10 M1 PO; TUSSIN COU15 MG/5 ML PO; VISTARIL25 MG PO; VISTARIL50 MG PO; VITAMIN C500 M4 PO; VITAMIN D35000 UNIT PO; WELLBUTRIN XL300 MG PO; ZOFRAN4 MG PO
[2018-12-07] MEDS ORDERED: FEOSOL325 MG PO (17:28)
[2018-12-07] MEDS ORDERED: SEROQUEL50 MG PO (17:32)
[2018-12-07] MEDS ORDERED: ARGINAID POWDE1 EACH PO (17:38)
[2018-12-07] MEDS ORDERED: SEROQUEL25 MG PO (17:41)
[2018-12-07] MEDS ORDERED: NOVOLOG100 UNIT/1 SQ (17:44)
[2018-12-07 21:49] VITALS: BP 135/66
--- NOTE | 2018-12-07 21:56 | NUR ---
DR PLATA UPDATED AND AWARE PATIENT ADMITTED ON UNIT. PATIENT UNDER DR BOWDEN FOR MEDICAL MANAGEMENT
--- NOTE | 2018-12-07 22:03 | NUR ---
DR WHITLOCK ON UNIT TO SEE PATIENT
[2018-12-07 22:27] VITALS: BP 135/66
--- NOTE | 2018-12-07 22:30 | NUR ---
CARMEN GAMBINO a 63 year old F admitted via wheel chair from [facility] as a voluntary admission BY POA Arrived on unit at 2134. ALLERGIES: AMOXACILLIN. Vital signs are: 97.1-93-18 135/66. The POA VERBALLY AGREED TO the following forms with stated understanding: Authorization For The Release of Medical Information, Clothing List, Consent to Voluntary Admission and Hospitalization, Consent and Release Forms/Receipt of Rights, Acknowledgement of Advance Directive Information, Behavioral Health Consent Form, and Informed Consent of Medications. [facility] A search was conducted and hazardous articles were removed. Client was oriented to the unit. MARIA CONNORS
--- NOTE | 2018-12-07 23:09 | NUR ---
DR PLATA UPDATED ABOUT ABDOMINAL FOLDS, UNDER BILATERAL BREAST, LEFT HEEL, AND MONITORING DRY SCABBED AREA ON CROWN OF HEAD. DR PLATA TO PUT IN ORDERS
--- NOTE | 2018-12-08 03:10 | NUR ---
24 HR chart check completed.
[2018-12-08 07:20] LABS: ALBUMIN 2.8 gm/dl (3.1-4.5); ALKALINE PHOSPHATASE 83 U/L (45-117); BUN 28 mg/dl (7-24); CHLORIDE 108 mmol/L (98-107); CHOLESTEROL 133 mg/dL (<200); CREATININE 0.62 mg/dL (0.55-1.02); HDL CHOLESTEROL 44 mg/dl (40-60); LDL CHOLESTEROL 75 mg/dL (9-159); POTASSIUM 3.8 mmol/L (3.5-5.1); SGOT/AST 8 IU/L (3-35); SGPT/ALT 15 U/L (12-78); SODIUM 142 mmol/L (136-145); TOTAL PROTEIN 6.8 gm/dL (6.4-8.2); TRIGLYCERIDES 70 mg/dl (<150); VLDL CHOLESTEROL 14 mg/dL (6-40)
[2018-12-08 07:23] LABS: BASO # 0.1 10*3/uL (0.0-0.1); BASO % 0.7 % (0.0-1.0); EOS # 0.3 10*3/uL (0.0-0.4); EOS % 4.3 % (1.0-4.0); HEMATOCRIT 34.9 % (37.0-47.0); HEMOGLOBIN 10.9 g/dl (12.0-16.0); LYMPH # 2.8 10*3/uL (1.3-4.4); LYMPH % 36.1 % (27.0-41.0); MEAN CELL VOLUME 84.3 fl (81.0-99.0); MEAN CORPUSCULAR HGB 26.3 pg (27.0-31.0); MEAN CORPUSCULAR HGB CONC 31.2 g/dl (33.0-37.0); MEAN PLATELET VOLUME 11.6 fl (9.6-12.3); MONO # 0.7 10*3/uL (0.1-1.0); NEUT # 3.8 10*3/uL (2.3-7.9); NEUT % 49.6 % (47.0-73.0); PLATELET COUNT AUTOMATED 153 10*3/uL (130-400); RED BLOOD COUNT 4.14 10*6/uL (4.10-5.10); RED CELL DISTRI WIDTH 18.6 % (0-14.5); WHITE BLOOD COUNT 7.6 10*3/uL (4.8-10.8)
[2018-12-08 07:38] LABS: BILIRUBIN NEGATIVE (NEGATIVE); BLOOD TRACE-INTACT (NEGATIVE); CLARITY CLOUDY (CLEAR); COLOR YELLOW (YELLOW); GLUCOSE NEGATIVE (NEGATIVE); KETONE NEGATIVE (NEGATIVE); LEUKO ESTERASE 3+ (NEGATIVE); NITRITE POSITIVE (NEGATIVE); SPECIFIC GRAVITY <= 1.005 (1.005-1.030); UROBILINOGEN 0.2 E.U./dl (0.2-1.0)
[2018-12-08 07:44] LABS: BACTERIA 4+; EPITHELIAL CELLS 0-2; MUCOUS 1+; RBC 0-2 rbc/hpf (0-2); WBC TNTC wbc/hpf (0-5)
[2018-12-08 08:14] VITALS: BP 113/64
--- NOTE | 2018-12-08 10:18 | NUR ---
KASEY PACHECO CNP ON UNIT TO ASSESS PATIEMT.
--- NOTE | 2018-12-08 11:45 | NUR ---
AM/EXERCISE/BINGO PT ATTENDED AND PARTICIPATED BY LISTENING TO MUSIC AND OBSERVING. PT EVENTUALLY FELL ASLEEP TO NOT WAKE REST OF GROUP. PT DID NOT EXPRESS ANY AGITATION OR AGGRESSION AT THIS TIME AN DWILL CONTINUE TO ATTEND AND BE ENCOURAGED TO PARTICIPATE TO BEST OF PT ABILITY.
--- NOTE | 2018-12-08 11:58 | NUR ---
DR. BOWDEN ON UNIT, NOTIFIED OF UA RESULTS LOWER LEGS EDEMATOUS, RIGHT LOWER LEG WARM TO TOUCH AND PATIENT COMPLAINT ON PAIN TO THIS EXTREMITY.
--- NOTE | 2018-12-08 15:52 | NUR ---
PM/REMINISCE PT CHOSE NOT TO ATTEND BUT TO TAKE A NAP AT THIS TIME. PT WILL CONTINUE TO BE ENOCURAGED OT ATTEND AN DPARTICIPATE IN FUTURE GROUP SESSIONS.
--- NOTE | 2018-12-08 16:00 | NUR ---
P: TEARFUL, DEPRESSED MOOD I: ONE ON ONE, REDIRECTION AND ASSISTED TO QUIET ROOM FOR CHANGE OF ENVIRONMENT. R: EFFECTIVE. PATIENT IS ALERT TO PERSON AND AWARE OF BEING IN THE HOSPITAL. MEMORY GAPS NOTED. MOOD IS DEPRESSED. DENIES ANY HALLUCINATIONS, DELUSIONS, HI/SI OR PAIN. NO RESPONSE TO INTERNAL STIMULI. 1-2 PERSON ASSIST WITH ACTIVITIES OF DAILY LIVING, CONTINENT OF BOWEL AND BLADDER. SET UP FOR MEALS, INTAKES ARE GOOD WITH ADEQUATE FLUIDS. MEDICATION COMPLAINT. Q 15 MINUTE SAFETY CHECKS MAINTIANED. UP IN WHEELCHAIR AND USED WALKER FOR TRANFERS. P: CONTINUE TO MONITOR FOR AGGRESSION AND PUTTING SELF ON THE FLOOR; PROVIDE ONE ON ONE AND REDIRECTION NEEDED.
--- NOTE | 2018-12-08 16:16 | NUR ---
Shift chart check completed.
[2018-12-08 19:55] VITALS: BP 123/68
--- NOTE | 2018-12-08 20:30 | NUR ---
EASILY AWAKENED TO TAKE MEDICATIONS. NOT INTERESTED IN ANSWERING MY QUESTIONS ABOUT HER DAY OR FEELINGS. APPEARS TO HAVE FALLEN BACK TO SLEEP. WILL CONTINUE TO MONITOR
--- NOTE | 2018-12-09 04:09 | NUR ---
24 HR chart check completed. INCONTINENT OF LARGE AMOUNT OF URINE. TOTAL BED AND CLOTHING COMPLETED. RETURNED TO POSITION OF COMFORT
--- NOTE | 2018-12-09 06:01 | NUR ---
SLEPT 6.5 HOURS INTERMITTENT
[2018-12-09 07:46] VITALS: BP 121/75
--- NOTE | 2018-12-09 13:55 | NUR ---
A FOOTREST PAD WAS NOTED ON THE TABLE. AFTER ASSESSING THE PATIENTS WHEELCHAIR, IT WAS FOUND TO BE FROM THE PATIENT'S WHEELCHAIR. THE FOOT REST WAS REMOVED AFTER NOT BEING ABLE TO FIX IT TO PREVENT INJURY. PT THEN STARTED SLIDING OUT OF THE WHEELCHAIR. AFTER EXPLAINING TO THE PATIENT SHE NEEDED TO SCOOT HERSELF BACK SHE STATED SHE COULD NOT AND CONTINUED TO SLIDE SELF OUT OF WHEELCHAIR ONTO THE FLOOR WITH BUTTOCKS RESTING ON THE FLOOR AND BACK RESTING AGAINST THE WHEELCHAIR. PT REPETITIVELY STATED "I AM NOT LAUGHING". NO ONE WAS LAUGHING AT THIS TIME. PT WAS NOTED TO SLIDE OUT OF WHEELCAHIR AT SENIOR CARE MULTIPLE TIMES A BEHAVIOR. NO INJURIES NOTED AND WAS WITNESSED BY 2RNS. PT WAS PLACED ON A TANIYA PAD AND HOYERED UP TO ABDOULAYE CHAIR. NO AREAS OF CONCERN NOTED. NURSING FLORICULTURIST ON UNIT TO ASSIST LIFTING PT. PT TEARFUL DURING MEDICATION ADMINISTRATION. PT REQUESTED MEDICATION TO BE CRUSHED AND PUT IN APPLESAUCE. MED PASS AT 1300 PT TOOK MEDICATION WHOLE AND SAID IT WAS BETTER. BEHAVIORS MONITORED WITH Q15 MINUTE CHECKS. ASSURED PT SHE IS SAFE.
[2018-12-09 20:14] VITALS: BP 116/74
--- NOTE | 2018-12-09 21:31 | NUR ---
NO TEARFUL OUTBURSTS. MEDICATION PASS COMPLETED WITHOUT DIFFIUCLTY. INSULAN COVERAGE PROVIDED PER ORDERS. HOYERED CLIENT INTO BED. INCONTINENT OF URINE. CHANGED AND CLEAN DRY CLOTHING APPLIED. POSITION OF COMFORT.
--- NOTE | 2018-12-10 04:16 | NUR ---
24 HR chart check completed.
--- NOTE | 2018-12-10 06:14 | NUR ---
SLEPT WELL PAST 2200PM
[2018-12-10 07:48] VITALS: BP 134/58
--- NOTE | 2018-12-10 07:57 | NUR ---
PHYSICAL THERAPY Nursing screen received and chart reviewed. PT referral received. Thank you. Daria Mai,PT,DPT.
--- NOTE | 2018-12-10 08:29 | NUR ---
Nursing screen received and chart reviewed. Occupational therapy orders have since been received additionally. Will follow up with patient for OT eval as appropriate. Thank you. Annie Liz, OTR/L
--- NOTE | 2018-12-10 08:30 | NUR ---
Treatment Plan meeting with Dr. Redding, RN, AT, SW and Button Pusher. Plan for discharge this week possible beginning of next week. Pt. came to [facility] from [place].
--- NOTE | 2018-12-10 08:32 | NUR ---
CARMEN GAMBINO [id number] Please refer to the physician's history and physical for past medical history, comorbid conditions, and allergies. Diagnosis: SCHIZOAFFECTIVE DISORDER Chris Score: 17,AT RISK WOUND DESCRIPTIONS: Wound #1 crown of head intact scab noted. No drainage or erythema noted at time of assessment. Patient unsure how this area happened. Wound Number: 2 Location of the wound: left proximal heel Type of wound: DTI Thickness: Full Size: 0.4cm x 0.6cm x <0.1cm Tunneling: none Undermining: none Sinus Tract: none Presence of Exudate: none Amount: None Color: Purple Odor: None Periwound Skin Appearance: Normal Wound edges: closed Pain (associated with wound): denied at time of assessment How does patient state this happened? patient unsure how this area happened. If wound is on legs/feet or hands, capillary refill time, pulses, color temp, sensation: cap refill < 3 seconds. Wound #3 Breast and ABD folds red and musty odor noted. Wound Number: 4 Location of the wound: left distal heel Type of wound: DTI Thickness: Full Size: 0.3cm x 0.3cm x <0.1cm Tunneling: none Undermining: none Sinus Tract: none Presence of Exudate: none Amount: none Color: Purple Odor: None Periwound Skin Appearance: Erythema Wound edges: closed Pain (associated with wound): denied at time of assessment How does patient state this happened? patient unsure how this area happened. If wound is on legs/feet or hands, capillary refill time, pulses, color temp, sensation: cap refill < 3 seconds Surface the patient is resting on: Proform SKIN PREVENTION RECOMMENDATION: 1. Pressure redistribution support surface as appropriate 2. Elevate heels 3. Remove boots/TEDS every shift and reapply 4. Head of bed 30 degrees as tolerated 5. Assess nutrition and hydration 6. Manage moisture 7. Avoid the use of containment devices while in bed 8. Use absorptive products on surfaces limit layers of linens on bed 9. Turn and reposition every 1-2 hours in bed and every 1 hour in chair as tolerated 10. Weight shifts every 15 minutes while up in chair 11. Offloading with pillows or device to keep heels elevated off bed 12. Monitor skin at least every shift 13. Inspect under medical devices twice a day WOUND TREATMENT RECOMMENDATIONS: DTI Guidelines to Left proximal and distal heel: Cleanse with nss apply sureprep allow to dry and cover with optifoam gentle. Heel raiser proboots while in bed. Continue nystatin powder to breast and folds every 8 hours.
--- NOTE | 2018-12-10 09:00 | NUR ---
PT OFF THE UNIT WITH SECURITY, SHOE STICKS REPAIRER, AND MILIEU FOR ULTRASOUND OF LOWER EXTREMITY.
--- NOTE | 2018-12-10 09:16 | NUR ---
PT BACK FROM ULTRASOUND
--- NOTE | 2018-12-10 09:40 | NUR ---
BACK FROM [facility]. MEDICATION COMPLIANT.
--- NOTE | 2018-12-10 10:21 | NUR ---
DR FLORES ON UNIT TO ASSESS PT. UPDATE PROVIDED.
--- NOTE | 2018-12-10 10:26 | NUR ---
Spoke with Eda Assistant Casino Shift Manager at [facility]. Pt. is LTC at facility and will return at discharge. Clinical Updates faxed to facility.
--- NOTE | 2018-12-10 10:35 | NUR ---
Dr. Eisenberg notified of wound care recommendations.
--- NOTE | 2018-12-10 11:53 | NUR ---
Faxed admission clinical to [facility] at [phone]. Awaiting response.
--- NOTE | 2018-12-10 11:58 | NUR ---
AM GROUP/EXERCISE AND BRAIN GAMES PT ATTENDED AND PARTICIPATED IN ALL GROUP ACTIVITIES TO THE BEST OF HER ABILITY. PT EXHIBITED NO AGITATION OR AGGRESSION WHILE IN GROUP
--- NOTE | 2018-12-10 14:10 | NUR ---
PHYSICAL THERAPY Physical therapy evaluation attempted. Patient in group session at this time. Will try PT evaluation again at a later time/date. Thank you. Daria Mai,PT,DPT.
--- NOTE | 2018-12-10 15:33 | NUR ---
PM GROUP/LEISURE INTERESTS PT WAS PRESENT FOR AFTERNOON GROUP THERAPY AND REQUESTED A WORDSEARCH TO DO BUT PROMPTLY FELL ASLEEP WHILE WORKING ON IT WITH PENCIL IN HAND.
--- NOTE | 2018-12-10 15:34 | NUR ---
IP 7 days gena per Isela at [facility], NRD 12/14. Ref # [id number]
[2018-12-10 19:41] VITALS: BP 122/73
--- NOTE | 2018-12-10 22:13 | NUR ---
Patient alert to person with memory deficits noted. No signs of any hallucinations noted at this time. Patient compliant with medications without any difficulty. Attempted to provide 1:1 for emotional support but patient refused. Plan to continue to encourage medication compliance and also continue to provide 1:1 for emotional support. Q 15 minute safety checks continued and maintained. See [facility] flowsheet for further documentation.
--- NOTE | 2018-12-11 00:09 | NUR ---
24 HR chart check completed.
--- NOTE | 2018-12-11 05:14 | NUR ---
Patient slept approx. 6 1/2 hours throughout shift. Q 15 minute safety checks continued and maintained.
--- NOTE | 2018-12-11 08:30 | NUR ---
Treatment Plan meeting with Dr. Redding, RN, AT, SW and Land Surveying Survey Worker. Plan for discharge Fri with possible Next week. Pt. will return to [facility] at discharge.
[2018-12-11 08:33] VITALS: BP 125/61
--- NOTE | 2018-12-11 11:51 | NUR ---
AM GROUP PT WAS PRESENT FOR MORNING GROUP THERAPY BUT HAD TO USE THE RESTROOM AND WAS TAKEN OUT. THE PT RETURNED WITH ONLY MINUTES OF GROUP REMAINING.
--- NOTE | 2018-12-11 14:40 | NUR ---
PHYSICAL THERAPY Patient in group session at this time. Will attempt PT evaluation at a later date. Thank you. Daria Mai,PT,DPT.
--- NOTE | 2018-12-11 14:40 | NUR ---
Patient not available as she is in group session. Samara Terry OTR/l
--- NOTE | 2018-12-11 15:15 | NUR ---
PATIENT IS ALERT TO PERSON, PLACE (HOSPITAL) AND RECALL LAST MEAL CONSUMED. MEMORY GAPS NOTED. ANSWERS SIMPLE QUESTIONS ONLY. DENIES ANY HALLUCINATIONS, DELUSIONS, HI/SI OR PAIN. NO RESPONSE TO INTERNAL STIMULI. Q 15 MINUTE SAFETY CHECKS. MEDICATION COMPLAINT. 1-2 PERSON ASSIST WITH ACTIVITIES OF DIALY LIVING, CONTINENT OF BOWEL AND BLADDER WITH EPISODES OF BLADDER INCONTINENCE. INTERACTIVE WITH NURSING STAFF AND OTHER PATIENTS. ATTENDED GROUP SESSION, BUT DID NOT PARTICIPATE. UP IN ABDOULAYE CHAIR FOR COMFORT. CONTINUE TO MONITOR FOR AGGRESSION. PROVIDE ONE ON ONE AND REDIRECTION NEEDED.
--- NOTE | 2018-12-11 15:29 | NUR ---
PM GROUP/ART AND MUSIC PT WAS PRESENT FOR AFTERNOON GROUP THERAPY RECLINED IN A ABDOULAYE CHAIR SLEEPING. PT DID NOT WAKE DURING GROUP
--- NOTE | 2018-12-11 15:30 | NUR ---
Shift chart check completed.
--- NOTE | 2018-12-11 17:21 | NUR ---
Shift chart check completed.
[2018-12-11 19:16] VITALS: BP 129/66
--- NOTE | 2018-12-11 20:08 | NUR ---
CAUGHT WIGGLING HERSELF TO END OF CHAIR. REDIRECTED AND HAD HER MOVE HERSELF UP IN THE CHAIR. WILL CONTINUE TO MONITOR
--- NOTE | 2018-12-11 20:35 | NUR ---
EVENING/RELAXTION/REMINISCE PT ATTENDED AND PARTICIPATED BY RELAXING AND WATCHING "COLOR THERAPY" VIDEO. PT DID NOT BECOME AGGRESSIVE AT THIS TIME AND WILL CONTINUE TO ATTEND AND PARTICIPATE TO BEST OF PT ABILITY.
--- NOTE | 2018-12-11 21:00 | NUR ---
MEDICATION COMPLIANT. BSG COVERED PER ORDERS. NO CHANGES NOTED. NO PROBLEMS NOTED THIS SHIFT.
--- NOTE | 2018-12-12 04:13 | NUR ---
24 HR chart check completed.
--- NOTE | 2018-12-12 05:33 | NUR ---
Upon discharge recommend patient to follow up for wound care in outpatient setting continue current wound care orders at discharging facility.
--- NOTE | 2018-12-12 05:53 | NUR ---
SLEPT WELL PAST 2200PM
[2018-12-12 07:59] VITALS: BP 128/59
--- NOTE | 2018-12-12 08:30 | NUR ---
Treatment Plan meeting with Dr. Redding, RN, AT, SW and Lumpia Wrapper Maker. Plan for discharge Monday. Pt. to return to [place].
--- NOTE | 2018-12-12 08:44 | NUR ---
Occupational Therapy evaluation completed on 3 with full eval to follow. PRecautions include fall risk, +2 max transfers, obesity, impaired intellectual functioning,high complexity 60501 via chart review, testing and evaluation with assist for all ADls. Recommend no further OT, nursing to assist with all ADls and use of Cooper for tranfers as indicated based on behaviors of patient and willingness to cooperate and return to [facility] upon d/c. Thank you. Samara Terry OTR/L
--- NOTE | 2018-12-12 08:44 | NUR ---
PHYSICAL THERAPY Physical therapy evaluation only complete, 3N. Low complexity evaluation (32137) per chart review and evaluation. Patient reports that [facility]. Recommend continued transfers with nursing staff to maintain current level of function. Recommend return to [facility] at discharge. Thank you. Daria Mai,PT,DPT
--- NOTE | 2018-12-12 11:43 | NUR ---
AM GROUP PT WAS PRESENT FOR MORNING GROUP THERAPY RECLINED IN A ABDOULAYE CHAIR SLEEPING SOUNDLY. PT DID NOT WAKE DURING GROUP.
--- NOTE | 2018-12-12 15:14 | NUR ---
PT COOPERATIVE TODAY, MEDICATION COMPLIANT WITH NO SI/HI OR DELUSIONS. PT SMILES WHEN SPOKEN TO, NO SI/HI OR DELUSIONS NOTED. PT UP TO [facility] FOR GROUP. PT HAS HAD NO EPISODES OF WEEPING OR TEARFULNESS TODAY, NO OUTBURSTS. PT TO CONTINUE WITH 15 MIN CHECKS AT THIS TIME
--- NOTE | 2018-12-12 15:32 | NUR ---
PM GROUP/SOCIALIZING PT ATTENDED AND PARTICIPATED IN AFTERNOON GROUP TO THE BEST OF HER ABILITY. PT FELL ASLEEP A FEW TIMES DURING GROUP. PT EXHIBITED NO AGGRESSIVE BEHAVIORS WHILE IN GROUP
--- NOTE | 2018-12-12 15:54 | NUR ---
Spoke with pt's DPOAHC/sister Tri Sanford. Tri spoke of pt's status prior to pt's [facility] admission and since her previous admission. Tri confirmed that pt is now in a separate room from her mother. There are also plans for pt to go to adult day care 2 days a week to promote further independence from her mother.
[2018-12-12 19:23] VITALS: BP 130/55
--- NOTE | 2018-12-12 21:22 | NUR ---
SHOWER COMPLETED.. SUGAR COVERED PER ORDERS. REVIEWED MEDICATION. CLIENT IN BED AT THIS TIME. ATE SNACK. CALM WITHOUT ISSUES THIS SHIFT. WILL CONTINUE TO MONITOR FOR CHANGES IN MOOD/BEHAVIOR.
--- NOTE | 2018-12-13 00:57 | NUR ---
24 HR chart check completed.
--- NOTE | 2018-12-13 05:56 | NUR ---
SLEPT APPROX 6 1/2 HOURS
[2018-12-13 07:39] VITALS: BP 110/68
--- NOTE | 2018-12-13 08:15 | NUR ---
MENTAL HEALTH WORKER REPORTED TO THIS NURSE THAT PATIENT'S KNEES BUCKLED WHILE AFTER TOILETING NEEDS WAS ASSISTED TO FLOOR BY MENTAL HEALTH WORKER. UPON ARRIVAL INTO BATHROOM PATIENT WAS LAYING ON BACK. STAFF ATTEMPTED ASSISTED PATIENT UP IN ABDOULAYE CHAIR; PATIENT PROVIDED NO ASSISTANCE. TANIYA PAD PLACED UNDER PATIENT AND PATIENT MECHANICALLY LIFTED INTO ABDOULAYE CHAIR. VITALS: 97.9, BP 144/68, 89, 17 NON LABORED, 96%RA. PATIENT HAS A RAISED AREA TO LEFT SIDE OF POSTERIOR HEAD. PATIENT ABLE TO MOVE ALL EXTREMITIES. EYES REACTIVE TO LIGHT, NEURO'S WNL'S. DR. HERNADEZ NOTIFIED. FABIAN SOTO-EXTENSION EDUCATOR AND DENTURE MODEL MAKER NOTIFIED. CALL PLACED TO SISTER-SOPHIE TOUSSAINT, LEFT MESSAGE TO CALL HOSPITAL. ICE APPLIED TO HEAD.
--- NOTE | 2018-12-13 08:20 | NUR ---
Treatment Plan meeting with Dr. Redding, RN, AT, SW and Assembler Cards And Announcements. Plan for discharge Monday. Pt. will return to [facility].
--- NOTE | 2018-12-13 11:00 | NUR ---
DR. FLORES ON UNIT TO ASSESS PATIENT.
--- NOTE | 2018-12-13 11:36 | NUR ---
AM GROUP/EXERCISE PT WAS PRESENT AT THE START OF MORNING GROUP THERAPY AND BEGAN CRYING STATING, "MY HEAD HURTS" PT WAS QUESTIONED AND STATED, "I FALL" I LOOKED AT PT HEAD AND A VERY LARGE LUMP WAS FOUND. PT STATED, "I FALL IN THE BATHROOM" PT NURSE WAS NOTIFIED AND PT WAS REMOVED FROM THE DAYROOM.
--- NOTE | 2018-12-13 12:30 | NUR ---
Spoke with Eda at [facility]. Transportation arranged with facility to transport with picking supervisor time between 4:30 and 6:00 p.m. Monday.
--- NOTE | 2018-12-13 12:53 | NUR ---
ANOTHER CALL PLACED TO [facility] AND UPDATED.
--- NOTE | 2018-12-13 13:51 | NUR ---
DR. HERNADEZ NOTIFIED OF HEAD CT RESULTS.
--- NOTE | 2018-12-13 13:58 | NUR ---
PATIENT COMPLAINING OF HEAD PAIN, STATING "IT REALLY HURTS" PRN TYLENOL 650MG PO GIVEN AT THIS TIME.
--- NOTE | 2018-12-13 13:59 | NUR ---
Orders Received from Dr. Martinez for PT/OT and Speech at facility. Faxed order to [facility]
--- NOTE | 2018-12-13 14:31 | NUR ---
PATIENT IS ALERT AND ORIENT TO PERSON AND PLACE (HOSPITAL) WITH MEMORY GAPS. MOOD IS STABLE. DENIES ANY HALLUCINATIONS, DELULSIONS, HI/SI. PATIENT C/O HEAD PAIN-TYLENOL PRN PROVIDED. ANSWERS SIMPLE QUESTIONS ONLY. PATIENT RESTING IN BED. MEDICAITON COMPLIANT. Q 15 MINUTE SAFETY CHECKS MAINATINED. INTERACTIVE WITH STAFF AND PARTICIPATES IN GROUP SESSION. 2 PERSON ASSIST WITH ACTIVITIES OF DAILY LIVING, INCONTINENT OF BOWEL AND BLADDER. SET UP FOR MEALS, INTAKES ARE GOOD WITH ADEQUATE FLUIDS. TRANSFER VIA TANIYA LIFT WITH 2 ASSIST. IN ABDOULAYE CHAIR FOR COMFORT. CONTINUE TO MONITOR FOR AGGRESSION AND THROWING SELF ON FLOOR. PROVIDE ONE ON ONE AND REDIRECTION NEEDED
--- NOTE | 2018-12-13 14:57 | NUR ---
PRN TYLENOL EFFECTIVE, NO FURTHER COMPLAINTS OF HEAD PAIN.
--- NOTE | 2018-12-13 15:34 | NUR ---
PM GROUP/ART AND MUSIC PT DID NOT ATTEND AFTERNOON GROUP THERAPY. PT WAS IN BED RESTING
--- NOTE | 2018-12-13 16:31 | NUR ---
Shift chart check completed.
[2018-12-13 19:11] VITALS: BP 142/57
--- NOTE | 2018-12-13 21:35 | NUR ---
Patient alert to person with memory deficits noted. No signs of any hallucinations noted at this time. Patient compliant with medications without any difficulty.Patient requesting Tylenol for headache. Medicated with Tylenol po prn at patient's request for headache with patient's other HS medications. Attempted to provide 1:1 for emotional support but patient refused. Plan to continue to encourage medication compliance and also continue to provide 1:1 for emotional support. Q 15 minute safety checks continued and maintained. See [facility] flowsheet for further documentation.
--- NOTE | 2018-12-14 00:12 | NUR ---
24 HR chart check completed.
--- NOTE | 2018-12-14 05:12 | NUR ---
Patient slept approx. 7 1/2 hours throughout shift. Q 15 minute safety checks continued and maintained.
[2018-12-14 07:55] VITALS: BP 131/62
--- NOTE | 2018-12-14 08:11 | NUR ---
DR. HERNADEZ NOTIFIED OF PT'S DISCHARGE PLANS TODAY.
--- NOTE | 2018-12-14 08:30 | NUR ---
Patient resting quietly with no c/o discomfort. Respirations easy and regular. Vital signs stable. No overt distress. DR. LEONARDO ON UNIT TO ASSESS PT AT THIS TIME. REPORT GIVEN. JOE DOUGHERTY
--- NOTE | 2018-12-14 08:30 | NUR ---
Treatment Plan meeting with Dr. Redding RN, AT, SW and Photographic Processor. Plan for discharge today. Pt. to return to [facility]. Transportation has been arranged with facility to transport with metal pickling equipment operator time between 4:30-6:00 p.m.
[2018-12-14] MEDS ORDERED: QUETIAPINE FUM100 M3 PO (08:44)
[2018-12-14] MEDS ORDERED: CLONAZEPAM1 MG PO (08:44)
[2018-12-14] MEDS ORDERED: DIVALPROEX SOD125 M1 PO (08:44)
[2018-12-14] MEDS ORDERED: MIRTAZAPINE15 M2 PO (08:44)
[2018-12-14] MEDS ORDERED: NYSTOP60 GM T (10:28)
--- NOTE | 2018-12-14 11:37 | NUR ---
AM GROUP PT DID NOT ATTEND MORNING GROUP THERAPY. PT WAS IN BED RESTING. PT IS SET TO BE DISCHARGED FROM THE UNIT THIS AFTERNOON
--- NOTE | 2018-12-14 11:49 | NUR ---
PT PLEASANT, TOOK MEDS WITHOUR DIFFUILTY. PT UP TO ABDOULAYE CHAIR, IN GROUP INTERACTIVE, NO WEEPING, SMILES WHEN SPOKEN TO. PT ALERT TO PERSON AND PLACE KNOW SI/HI OR DELISIONS NOTED, PT TO BE DISCHARGED TODAY AND INFORMED OF DISCHARGE. CONTINUE TO MONITOR 15 MIN CHECKS AT THIS TIME.
--- NOTE | 2018-12-14 11:53 | NUR ---
This specifications writer has made numerous calls in an attempt to find a counselor that will work with pt when she returns to the . [facility] [place] remains a possibility. Await a return call.
--- NOTE | 2018-12-14 13:17 | NUR ---
Discharge Paperwork faxed to [place] Attn: Eda.
--- NOTE | 2018-12-14 14:56 | NUR ---
Spoke with Ruth Oneal at [facility]. Pt. will go to Center at [facility] twice a week and will have a Auto Painter Assigned to her. Auto Painter at [facility] Deepika is working on setting up treatment Plan for patient also. Pt. will not have a counselor. Called [facility] to Speak with Deepika who will return on Monday. Will Follow with Deepika Next week for follow through.
--- NOTE | 2018-12-14 15:00 | NUR ---
NURSE TO NURSE GIVEN TO DANNIELLE STILL [facility]
--- NOTE | 2018-12-14 15:14 | NUR ---
Received a call from [facility] office. Pt is accepted there and has an appointment on 01/02/19 at 15:00. Attempted to notify pt's sister/DPOAHC Tri Dowling of the details but had to leave a voicemail message.
--- NOTE | 2018-12-14 15:40 | NUR ---
PM GROUP/ANAYA PT DID NOT ATTEND AFTERNOON GROUP THERAPY. PT WAS IN BED NAPPING
--- NOTE | 2018-12-14 15:53 | NUR ---
PT WAS BEING TRANSFERED FROM BED TO PERSONAL WHEELCHAIR IN ROOM FOR DINNER, WHEN SHE QUIT BEARING WEIGHT DURING PIVOT, 2 STAFF ATTEMPTED TO ASSIST HER INTO CHAIR, UNABLE TO SUCCESSFULLY COMPLETE TRANSFER. PT WAS EASED TO THE FLOOR BY 2 STAFF, ASSESSED NO AREAS OF CONCERN NOTED AT THIS TIME. ASSISTED BACK INTO CHAIR BY 3 STAFF MEMBERS. NURSING SALES REPRESENTATIVE PUBLICATIONS UPDATED, DR. MARICARMEN IBARRA
[2018-12-14 16:08] VITALS: BP 119/876
--- NOTE | 2018-12-14 16:54 | NUR ---
Discharge instructions reviewed with patient/family. Patient receptive and verbalizes understanding. Follow-up care arranged. Written instructions given to patient/family. MARIA CONNORS
--- NOTE | 2018-12-17 08:19 | NUR ---
Faxed discharge clinical to [facility], all inpatient days covered
== END 2018-12-14 16:52 | disposition other institution (70) | DRG 885 ==
LOC: 3N 15:08
PROVIDERS: ADMIT Psychiatry & Neurology Psychiatry
DX: F25.9 Schizoaffective disorder, unspecified (principal); N39.0 Urinary tract infection, site not specified; Z68.42 Body mass index [BMI] 45.0-49.9, adult; I50.9 Heart failure, unspecified; J44.9 Chronic obstructive pulmonary disease, unspecified; E11.9 Type 2 diabetes mellitus without complications; K21.9 Gastro-esophageal reflux disease without esophagitis; E78.5 Hyperlipidemia, unspecified; I11.0 Hypertensive heart disease with heart failure; E66.01 Morbid (severe) obesity due to excess calories; M19.90 Unspecified osteoarthritis, unspecified site; G47.33 Obstructive sleep apnea (adult) (pediatric); D50.9 Iron deficiency anemia, unspecified; E11.69 Type 2 diabetes mellitus with other specified complication; F79 Unspecified intellectual disabilities; J30.9 Allergic rhinitis, unspecified; R13.10 Dysphagia, unspecified; M79.604 Pain in right leg; B37.2 Candidiasis of skin and nail; Z79.4 Long term (current) use of insulin; Z79.899 Other long term (current) drug therapy; Z85.42 Personal history of malignant neoplasm of other parts of uterus